=== PATIENT | male | born 1965 ===

== ENCOUNTER → 2023-05-07 10:11 | Outpatient (REF) | payer OTHER, SELFPAY | LOC: DHCBC HW 10:11 | PROVIDERS: ATTENDING PHYSICIAN Internal Medicine Cardiovascular Disease; FAMILY PHYSICIAN Family Medicine | DX: R00.2 Palpitations (principal); R00.0 Tachycardia, unspecified | CPT/HCPCS: 93306 ==

== ENCOUNTER → 2023-08-15 14:18 | Outpatient (REF) | payer OTHER, SELFPAY | LOC: RCS 14:18 | PROVIDERS: ATTENDING PHYSICIAN Internal Medicine Cardiovascular Disease; FAMILY PHYSICIAN Family Medicine | DX: R00.0 Tachycardia, unspecified (principal); R00.2 Palpitations; R73.03 Prediabetes | CPT/HCPCS: 93017 ==

== ENCOUNTER → 2023-08-16 09:40 | Outpatient (REF) | payer OTHER, SELFPAY | LOC: RCS 09:40 | PROVIDERS: ATTENDING PHYSICIAN Internal Medicine Cardiovascular Disease; FAMILY PHYSICIAN Family Medicine | DX: R00.0 Tachycardia, unspecified (principal); R00.2 Palpitations; R73.03 Prediabetes | CPT/HCPCS: 93225; 93226 ==

== ENCOUNTER → 2024-04-22 07:29 | Outpatient (REF) | payer OTHER, SELFPAY | LOC: HWRAD 07:29 | PROVIDERS: ATTENDING PHYSICIAN Family Medicine | DX: J06.9 Acute upper respiratory infection, unspecified (principal); R07.81 Pleurodynia | CPT/HCPCS: 71046; 71110 ==